=== PATIENT | female | born 1985 | race Caucasian/White ===

== ENCOUNTER 2020-06-21 20:52 | Inpatient (IN) | payer OTHER, SELFPAY ==
[2020-06-21] VITALS (8 sets, daily range): BP systolic 109–146; BP diastolic 70–119; PULSE 71–92; RESP 12; TEMP 36.7–37.1; O2SAT 98–99; BMI 35.9
[2020-06-21] MEDS: LACTATED RINGERS 1,000 ML 125 ML IV CONT (21:41)
--- NOTE | 2020-06-21 22:37 | WPDANESEPP ---
Anes - Eval Pre Procedure Procedure: Operation Date: 06/21/20 22:45 Proposed Procedures p Section(Not Applicable) - Payam Gonzales MD Date/Time: 06/21/20 22:37 Pre Op Diagnosis: Contractions, ruptered membranes, previous C/S Patient Data Age: 34 Gender: F Height: Weight: Last Vital Signs Pulse 84 06/21/20 21:39 BP 109/83 06/21/20 21:39 Allergies Allergy/AdvReac Type Severity Reaction Status Date / Time No Known Allergies Allergy Verified 06/01/20 16:09 Home Medications Medication Instructions Recorded Confirmed Type ergocalciferol (vitamin D2) 1,250 mcg PO WEEKLY 06/01/20 06/01/20 History [Vitamin D2] prenat.vits,tho,ojz-jtum-qxbnb 1 tablet PO DAILY 06/01/20 06/01/20 History [ #2] Patient hx anesthesia problems: none Family hx anesthesia problems: none PMFSH Family History Family History Father ALS (amyotrophic lateral sclerosis) Social History Social History Smoking status: Never smoker Alcohol intake: never Substance use: never Spiritual care concerns: No Exam Day of Procedure 06/21/20 22:37 Patient weight: overweight Heart: regular rate and rhythm Lungs: clear to auscultation and normal air movement Airway: Mallampati scale class II Neurological: alert and oriented
--- NOTE | 2020-06-21 22:39 | WPDANESEFPP ---
Anes - Eval Final PreProcedure Day of Procedure 06/21/20 22:39 Patient weight: overweight Heart: regular rate and rhythm Lungs: clear to auscultation and normal air movement Airway: Mallampati scale class II Neurological: alert and oriented ASA classification: II Emergent: yes Anesthetic plan: proceed Anesthesia type and monitoring: regional spinal and standard monitoring Informed Consent: The patient's anesthetic plan and its attendant risks and benefits were discussed with the patient/family/POA. Questions were solicited and answers provided to the satisfaction of the patient/family/POA.
[2020-06-21 22:41] LABS: Basophils Percent Auto 0.2 % (0.2-1.2); Eosinophils Absolute Auto 0.1 K/mm3 (0-0.3); Eosinophils Percent Auto 0.8 % (0-4.4); Hematocrit 30.7 % (37.0-47.0); Hemoglobin 10.2 g/dL (12.0-15.0); Immature Granulocyte Percent A 0.9 % (0-0.5); Lymphocytes Absolute Auto 2.28 K/mm3 (0.9-3.2); Lymphocytes Percent Auto 21.2 % (18.3-44.2); Mean Corpuscular HGB Conc 33.2 g/dl (32-36); Mean Corpuscular Hemoglobin 29.5 pg (26-34); Mean Corpuscular Volume 88.7 fl (80-100); Mean Platelet Volume 10.6 fl (7.4-10.4); Monocytes Absolute Auto 0.9 K/mm3 (0.1-0.6); Monocytes Percent Auto 8.7 % (2.6-8.5); Neutrophils Absolute Auto 7.3 K/mm3 (1.3-6.7); Neutrophils Percent Auto 68.2 % (45.5-73.1); Platelet Count Result 201 k/mm3 (150-375); Red Blood Count 3.46 M/mm3 (4.2-5.4); White Blood Count 10.7 K/mm3 (4.5-10.0)
--- NOTE | 2020-06-21 22:42 | PM.IMHP ---
H&P: HPI History of Present Illness Date/Time: 06/21/20 22:42 [age] 2 [age] whose last menstrual period was 09/20/2019, EDC is 06/26/2020 presents at 39 and half weeks gestation with spontaneous rupture membranes. She had a previous section and desires repeat at 39. She is however passed 39 and membranes were ruptured. Chief Complaint: labor in patient with previous section Review of Systems Review of Systems: All systems reviewed & are unremarkable except as noted in HPI and below PMFSH Family History Family History Father ALS (amyotrophic lateral sclerosis) Social History Social History Smoking status: Never smoker Alcohol intake: never Substance use: never Gender identity (if verbalized by the patient): Female Sexual Orientation (if Verbalized by the Patient): Straight or Heterosexual Spiritual care concerns: No Meds Home Medications and Allergies Home Medications Medication Instructions Recorded Confirmed Type ergocalciferol (vitamin D2) 1,250 mcg PO WEEKLY 06/01/20 06/01/20 History [Vitamin D2] prenat.vits,tho,ofg-xdzs-gqqii 1 tablet PO DAILY 06/01/20 06/01/20 History [ #2] Allergies Allergy/AdvReac Type Severity Reaction Status Date / Time No Known Allergies Allergy Verified 06/01/20 16:09 Vital Signs Vital Signs - 24 hr 06/21/20 21:39 Pulse Rate 84 Blood Pressure 109/83 Exam Const: General: no acute distress Eyes: General: appearance normal, both eyes and all related structures Neck: Neck: supple and no JVD Thyroid: thyroid normal Resp: Effort & Inspection: normal respiratory effort Auscultation: clear to auscultation bilaterally Cardio: Rate: regular rate Rhythm: regular rhythm GI: Inspection: non-distended GI Palp: Yes Soft to palpation, No Tenderness to palpation present (GI) and No Guarding due to palpation present (GI) Auscultation: normal bowel sounds : External Female Exam: normal external appearance Speculum Exam - Vagina: normal appearance of the vagina Speculum Exam - Cervix: normal appearance of the cervix ( 2-3 cm by RN exam. Clear fluid is seen. FHTs reassuring) Skin: General skin exam: no rashes or lesions noted Extrem: General: normal to inspection and no edema Psych: Mental Status: mental status grossly normal Affect: normal affect H&P: Results Labs Labs: Short CBC 06/21/20 Range/Units 22:36 WBC 10.7 H (4.5-10.0) K/mm3 Hgb 10.2 L (12.0-15.0) g/dL Hct 30.7 L (37.0-47.0) % Plt Count 201 (150-375) k/mm3 Assessment and Plan Additional Plan impression: Term with previous section now spontaneous rupture membranes Plan repeat low-transverse section
[2020-06-21] MEDS: LACTATED RINGERS 1,000 ML 999 ML IV CONT (22:45)
--- NOTE | 2020-06-21 22:46 | WPDHPUPDATE1 ---
History and Physical Update Update Date/Time: 06/21/20 22:46 History and Physical has been reviewed, including an updated exam of the patient. There are NO changes in the patient's condition. Risks, benefits, and alternatives have been discussed and questions answered. Patient agrees to proceed with procedure.
[2020-06-21] MEDS: ceFAZolin 2 GM/D5W 50 ML 2 GM/50 ML BAG IVPB (23:08)
--- NOTE | 2020-06-21 23:43 | P.OP_ITS ---
Procedure Note - Detailed Date of procedure: 06/21/20 Pre-op diagnosis: Contractions, ruptered membranes, previous C/S Surgeon: Payam Gonzales MD Postop diagnosis: Term spontaneous rupture membranes / previous section Procedure: Repeat low-transverse section EBL: 345cc Anesthesia: Spinal Findings: Female Apgars 9 and 9 at 1 and 5 minutes respectively Complications:none mmediate complications notedconsent she was rolled back placed in the supine position. Under excellent spinal anesthetic the previous incision was progressive layers to the fascia. Fascia incised midline in the upward outward fashion bilaterally. Underlying muscles cervical dissected the parietal peritoneum elevated Vanessa clamps. Peritoneum was entered by sharp dissection carried superiorly and inferiorly down the bladder. Bladder flap was formed and a bladder blade returned. A low-transverse incision made the head delivered in the AIDA position. Anterior posterior shoulder delivered spontaneously. Cord clamped x2 and cut in infant passed off the table with an excellent cry. P lacenta delivered intact manually. Uterus delivered and wrapped in a moist towel. After assuring no membranes remained in the uterus, the uterus was closed with continuous running 0 Vicryl from lateral edge to lateral edge followed by a 2nd imbricating running locking 0 Vicryl from lateral edge to lateral edge. Hemostasis was assured and blood loss was estimated. Ovaries and tubes appeared within normal limits with a small simple ovarian cyst on the right. Uterus returned to the abdomen the incision on the uterus inspected 1 last time noted be hemostatic. The laps removed and accounted for in the fascia closed with continuous running 0 Vicryl from lateral edge to midline bilaterally. Skin closed with 4 O Monocryl and glue. EBL was 345cc. All sponge, needle, instrument counts were correct. There were no i
[2020-06-22] VITALS (42 sets, daily range): BP systolic 88–119; BP diastolic 14–79; PULSE 57–181; RESP 14–20; TEMP 36.2–36.9; O2SAT 95–100
--- NOTE | 2020-06-22 00:45 | LDADM ---
This patient, Mary Shin, was admitted to Labor/Delivery/Recovery 120 on 06/21/20 at 22:16. Plans for labor, pain management and were discussed with patient. Patient/family oriented to hospital policies and general routines including ID bracelet, bed and alarms, visiting hours, pain management, procedures, bathroom and other care routines, personal items, smoking policy, room service/diet and guest tray routines, infant security routines, and visiting hours. Patient/Family are encouraged to report perceived risks to care and to ask questions if they do not understand what they are told or what they should do. See OBIX for further documentation.
[2020-06-22] MEDS: OXYTOCIN 30 UNITS/NS 500 ML 30 UNITS/500 ML BAG 125 UNITS IV CONT (02:00)
[2020-06-22] MEDS: diphenhydrAMINE HCl INJ 50 MG/ML VIAL (02:24)
--- NOTE | 2020-06-22 05:30 | OBPPTRN ---
Patient transferred to post room #286 via bed with baby in bassinet. Support person present. Oriented to unit, room, information board, rooming in, admission packet and security measures. Patient verbalizes understanding.
[2020-06-22 06:01] LABS: Basophils Percent Auto 0.2 % (0.2-1.2); Eosinophils Percent Auto 0.1 % (0-4.4); Hemoglobin 9.7 g/dL (12.0-15.0); Immature Granulocyte Absolute 0.14 K/mm3 (0.00-0.031); Immature Granulocyte Percent A 0.8 % (0-0.5); Lymphocytes Percent Auto 7.2 % (18.3-44.2); Mean Corpuscular HGB Conc 32.3 g/dl (32-36); Mean Corpuscular Hemoglobin 29.5 pg (26-34); Mean Corpuscular Volume 91.2 fl (80-100); Mean Platelet Volume 11.4 fl (7.4-10.4); Monocytes Absolute Auto 0.8 K/mm3 (0.1-0.6); Monocytes Percent Auto 4.7 % (2.6-8.5); Neutrophils Absolute Auto 14.5 K/mm3 (1.3-6.7); Platelet Count Result 195 k/mm3 (150-375); Red Blood Count 3.29 M/mm3 (4.2-5.4); White Blood Count 16.7 K/mm3 (4.5-10.0)
[2020-06-22] MEDS: DEXTROSE 5%/0.45% SOD CHL 1,000 ML 125 ML IV CONT (06:15)
--- NOTE | 2020-06-22 07:15 | PC.NURSE ---
PT introductions made and plan of care discussed per post op c section, pain management, breast feeding, daily care activities. PT verbalized understanding of such care. PT receives education through out the shift using one to one discussion and mom baby care guide. PT and spouse both recipients of such instructions and no barriers to learning identified.
[2020-06-22] MEDS: POLYSACCHARIDE IRON COMPLEX 150 MG CAPSULE PO ×2 (08:35→17:10)
[2020-06-22] MEDS: DOCUSATE SODIUM 100 MG CAPSULE PO ×2 (08:35→17:10)
[2020-06-22] MEDS: SIMETHICONE 80 MG TAB.CHEW PO ×2 (08:35→17:10)
[2020-06-22] MEDS: ACETAMINOPHEN 325 MG TABLET 650 MG PO ×2 (08:36→17:08)
[2020-06-22] MEDS: MULTIVIT/MIN/PREN/FOL AC/IRON TABLET 1 TAB PO (08:36)
[2020-06-22] MEDS: IBUPROFEN 600 MG TABLET PO ×2 (08:37→17:09)
--- NOTE | 2020-06-22 09:18 | WPDANLDPN2 ---
Anes-Prog Note L&D Date/Time: 06/22/20 09:18 Comfortable throughout: labor and delivery Neuraxial method: epidural Epidural/Spinal procedure site: clean & non-tender Neuro status: Neuro function grossly intact. Cardiovascular status: normal Respiratory status: normal Airway patency: baseline Mental status: baseline Post-Op hydration status: normal Vital Signs: Last Vital Signs Temp 36.8 C 06/22/20 04:15 Pulse 90 06/22/20 04:15 Resp 18 06/22/20 04:15 BP 97/64 L 06/22/20 04:15 Pulse Ox 98 06/22/20 04:15 Pain score (VAS): 0 I/O: Intake & Output 06/21/20 06/22/20 06/22/20 23:59 07:59 15:59 Intake Total 2050 Output Total 545 275 Balance 1505 -275 Post-procedural complaints: none Patient feedback: Patient satisfied with anesthetic care.
--- NOTE | 2020-06-22 09:20 | WPDANLDNPN2 ---
Anes-Prog Note L&D-Neuraxial Date/Time: 06/22/20 09:20 Opiod-related complaints: pruritis moderate, treatment effective Patient feedback: Patient satisfied with post-operative pain management.
[2020-06-22 10:51] LABS: Rapid Plasma Reagin Non-Reactive (NonReactive)
--- NOTE | 2020-06-22 11:40 | PC.NURSE ---
Consult with pt., mother reports is eagerly nursing without difficulties or discomfort. Mother reports first child for a few months and then switched to bottle feeding due to low milk supply and choice. Mother states easily awakens to feed, will latch eagerly within a few attempts and nurses without issue. Reviewed feeding cues, frequencies, duration of feedings, feeding elimination flow sheet, and signs of adequate intake. Demonstrated stimulation techniques to wake for feeding. Requested mother call out next feeding for observation. Instructed mother to call out for RN assistance if she is unable to latch for feeding or she has discomfort with nursing. Instructed feeding should be initiated three hours from start of last feeding or if feeding cues are noted before. Mother voiced understanding of information shared.
--- NOTE | 2020-06-22 16:02 | PM.OBPNVD ---
OB - PN: Subj Subjective Date/time seen: 06/22/20 16:02 Interval history: Patient doing well today. she is ambulating out of bed. She is tolerating PO. She reports adequate pain control. Her bleeding is normal and she reports normal lochia. She denies fever, chills, N/V. She has not yet passed flatus. Patient comments: no complaints and pain well controlled; no flatus present OB - PN: Obj Data Labs CBC & Chem 7: 06/22/20 04:27 Labs: Laboratory Results - last 24 hr 06/21/20 06/21/20 06/21/20 22:36 22:36 22:36 WBC 10.7 H RBC 3.46 L Hgb 10.2 L Hct 30.7 L MCV 88.7 MCH 29.5 MCHC 33.2 RDW 13.0 Plt Count 201 MPV 10.6 H Immature Gran % (Auto) 0.9 H Neut % (Auto) 68.2 Lymph % (Auto) 21.2 Bladen % (Auto) 8.7 H Eos % (Auto) 0.8 Baso % (Auto) 0.2 Lymph # (Auto) 2.28 Bladen # (Auto) 0.9 H Eos # (Auto) 0.1 Baso # (Auto) 0.0 Abs Immat Gran (auto) 0.10 H Absolute Neuts (auto) 7.3 H Absolute Nucleated RBC 0.0 Nucleated RBC % 0.0 RPR Non-reactive T.pallidum Ab (FTA-ABS) Blood Type B Positive Antibody Screen Negative 06/21/20 06/22/20 22:36 04:27 WBC 16.7 H RBC 3.29 L Hgb 9.7 L Hct 30.0 L MCV 91.2 MCH 29.5 MCHC 32.3 RDW 13.0 Plt Count 195 MPV 11.4 H Immature Gran % (Auto) 0.8 H Neut % (Auto) 87.0 H Lymph % (Auto) 7.2 L Bladen % (Auto) 4.7 Eos % (Auto) 0.1 Baso % (Auto) 0.2 Lymph # (Auto) 1.20 Bladen # (Auto) 0.8 H Eos # (Auto) 0.0 Baso # (Auto) 0.0 Abs Immat Gran (auto) 0.14 H Absolute Neuts (auto) 14.5 H Absolute Nucleated RBC 0.0 Nucleated RBC % 0.0 RPR T.pallidum Ab (FTA-ABS) Cancelled Blood Type Antibody Screen OB - PN A/P Plan day: 1 Plan: routine care Comments: patient doing well this AM s/p santoro catheter advance diet as tolerated H/H 9.09/23, will start iron supplementation continue routine PP care Time Spent With Patient Time: Total time spent is greater than 50% in coordination of care (as documented) at patient's floor/unit and/or counseling patient: Time with patient: less than 15 minutes Review of Systems Constitutional: Constitutional: Reports no additional constitutional complaints Cardiovascular: Cardiovascular: Reports no additional cardiovascular complaints Respiratory: Respiratory: Reports no additional respiratory complaints Gastrointestinal: Gastrointestinal: Reports no additional gastrointestinal complaints Genitourinary: Genitourinary: Reports no additional female genitourinary complaints Exam Const: General: comfortable and no acute distress Resp: Effort & Inspection: normal respiratory effort Auscultation: clear to auscultation bilaterally Cardio: Rate: regular rate GI: GI Palp: Yes Soft to palpation and Yes Tenderness to palpation present (GI) (appropriately tender around incision ) Auscultation: normal bowel sounds Other: fundus firm and below umbilicus Incision C/D/I Urinary Catheter: Urinary Catheter: urine clear Psych: Appearance: grossly normal Mental Status: mental status grossly normal Affect: normal affect
[2020-06-23 00:25] VITALS: BP 96/59; PULSE 77; RESP 15; TEMP 36.7; O2SAT 100
[2020-06-23] MEDS: IBUPROFEN 600 MG TABLET PO ×2 (00:29→08:03)
[2020-06-23] MEDS: ACETAMINOPHEN 325 MG TABLET 650 MG PO (00:29)
[2020-06-23] MEDS: SIMETHICONE 80 MG TAB.CHEW PO ×2 (00:30→08:01)
--- NOTE | 2020-06-23 07:10 | PM.OBPNVD ---
OB - PN: Subj Subjective Date/time seen: 06/23/20 07:10 Interval history: Patient doing well today. she is ambulating out of bed. She is tolerating PO. She reports adequate pain control. Her bleeding is normal and she reports normal lochia. She denies fever, chills, N/V. She has not yet passed flatus. Patient comments: no complaints, pain well controlled, tolerating diet and flatus present OB - PN: Obj Data Labs CBC & Chem 7: 06/22/20 04:27 Labs: Laboratory Results - last 24 hr 06/21/20 06/21/20 22:36 22:36 RPR Non-reactive T.pallidum Ab (FTA-ABS) Cancelled OB - PN A/P Plan day: 1 Plan: routine care Comments: patient doing well H/H stable afebrile, VSS incision C/D/I santoro removed, voiding spontaneously continue routine post op care Time Spent With Patient Time: Total time spent is greater than 50% in coordination of care (as documented) at patient's floor/unit and/or counseling patient: Time with patient: less than 15 minutes Review of Systems Constitutional: Constitutional: Reports no additional constitutional complaints Cardiovascular: Cardiovascular: Reports no additional cardiovascular complaints Respiratory: Respiratory: Reports no additional respiratory complaints Gastrointestinal: Gastrointestinal: Reports no additional gastrointestinal complaints Genitourinary: Genitourinary: Reports no additional female genitourinary complaints Exam Const: General: comfortable and no acute distress Resp: Effort & Inspection: normal respiratory effort Auscultation: clear to auscultation bilaterally Cardio: Rate: regular rate GI: GI Palp: Yes Soft to palpation, Yes Tenderness to palpation present (GI) (around incision ) and No Guarding due to palpation present (GI) Auscultation: normal bowel sounds Other: incision C/D/I, covered with Dermabond Psych: Appearance: grossly normal Mental Status: mental status grossly normal Affect: normal affect
--- NOTE | 2020-06-23 07:11 | P.DS_ITS ---
DS: Admitting Diagnosis Admitting Diagnosis Admitting Diagnosis: Labor history of prior section OB - DS: Summary OB Procedures : None OB Procedures Intrapartum: OB Procedures: : None Peripartum Data Delivery Method: Section Procedures: Procedures Operation Date: 06/21/20 22:45 Actual Procedure Side Surgeon p Section Not Applicable Payam Gonzales MD complications: none Status at Discharge Functional status at discharge: independent ambulation Overall status at discharge: patient is progressing back to baseline Time Spent with Patient Time attestation: Total time spent providing and/or coordinating discharge services: Time spent: Less than 30 minutes Exam Const: General: comfortable and no acute distress Resp: Effort & Inspection: normal respiratory effort Auscultation: clear to auscultation bilaterally Cardio: Rate: regular rate GI: Inspection: non-distended GI Palp: Yes Soft to palpation, No Firmness to palpation present (GI), Yes Tenderness to palpation present (GI) (mild tender ness over incision ) and No Guarding due to palpation present (GI) Auscultation: normal bowel sounds Psych: Appearance: grossly normal Mental Status: mental status grossly normal DS: Data Data Completed and Pending Labs on day of discharge: Labs from last 24 hours 06/21/20 06/21/20 22:36 22:36 RPR Non-reactive T.pallidum Ab (FTA-ABS) Cancelled Discharge Plan Discharge Attending physician on discharge: Shimon Flores Consulting providers: Jordan Coleman Discharging Clinician: Shimon Flores Patient Disposition: Home, Self-Care Activity: as tolerated and pelvic rest Diet: regular Discharge Instructions: call or return for temperature >100.4, bleeding >2 pads/hr for 2 hrs, pain not controlled with medications, signs/symptoms of mastitis Patient Instructions: Antibiotic Form, (DC) Stand Alone Forms: General Discharge Information Follow-up/Referrals: Shimon Flores MD [Physician] - 4 Weeks Discharge Medications: New oxycodone-acetaminophen [Percocet] 5-325 mg tablet 1 tablet PO Q6H PRN (Reason: pain) Qty: 28 RF: 0 polysaccharide iron complex 150 mg iron Capsule 150 mg PO BIDWM Qty: 60 RF: 0 acetaminophen [Mapap (acetaminophen)] 325 mg Tablet 650 mg PO Q6H PRN (Reason: Mild Pain (1-3)) Qty: 30 RF: 0 ibuprofen 600 mg Tablet 600 mg PO Q6H PRN (Reason: Cramping) Qty: 30 RF: 0 Continued ergocalciferol (vitamin D2) [Vitamin D2] 1,250 mcg (50,000 unit) Capsule 1,250 mcg PO WEEKLY RF: 0 #2 Tablet 1 tablet PO DAILY RF: 0 Date of admission: 06/21/20 22:16 Primary Care Provider: PHYSICIAN,FIREPOT OPERATOR AND TENDER Admitting Provider: Shimon Flores Attending physician on admission: Shimon Flores Condition: Stable
[2020-06-23 08:00] VITALS: BP 110/66; PULSE 81; RESP 18; TEMP 36.6; O2SAT 100
[2020-06-23] MEDS: DOCUSATE SODIUM 100 MG CAPSULE PO (08:01)
[2020-06-23] MEDS: HYDROcodone/acetaminophen (*CRX) 5-325 MG TABLET 1 TAB PO (08:02)
[2020-06-23] MEDS: POLYSACCHARIDE IRON COMPLEX 150 MG CAPSULE PO (08:02)
[2020-06-23] MEDS: MULTIVIT/MIN/PREN/FOL AC/IRON TABLET 1 TAB PO (08:02)
--- NOTE | 2020-06-23 08:30 | PC.NURSE ---
Patient was given the opportunity to view the discharge video Mother & Baby Care, The First Two Weeks and to ask questions. Patient declined viewing the video and has been given the mother/baby guide for home reference.
--- NOTE | 2020-06-23 10:10 | PC.NURSE ---
Observed mother is able to independently latch infant with appropriate positioning/alignment. She denies any nipple discomfort, is feeding as required and waking infant to feed if needed. is feeding as required of at least 8 effective feedings in the past 24 hours, and is currently meeting outcomes for weight, output, jaundice and feeding frequencies. Mother is concerned with 's tongue and due to first child had a tongue tie and difficulties with latching. 's tongue does not appear to be tied and is able to thrust tongue beyond gum ridge. Advised to inform her ICP for assessment on first visit and watching for tenderness with feeding and infant weight gain. Mother states she feels confident to continue effective at home. Reviewed transition to breast milk, signs of adequate intake, and engorgement/relief. Instructed to call ICP if intake/output less than required. Reviewed regular medications mother is taking. Information provided per [facility]. Reviewed community resources on the [facility] website and in the Mom/Baby guide. Information on outpatient services provided. Mother has no further questions at this time.
--- NOTE | 2020-06-23 10:23 | PC.NURSE ---
Discharge instructions given to mother including follow up visit date and time. Mother verbalized understanding. No questions or concerns voiced. FOB at side. Very pleasant and cooperative. Happy about going home.
--- NOTE | 2020-06-23 16:13 | PC.NURSE ---
Pt. states that she has farm machinery mechanic appt. tomorrow 06/24/20 at 10:[address] Bowman. Will not be returning for follow up visit.
== END 2020-06-23 16:10 | disposition home or self-care (01) | DRG 788 ==
LOC: ANHLDR 22:46 → ANHOB2 06-22 04:27
PROVIDERS: Admitting Provider Obstetrics & Gynecology; Visit Provider Student in an Organized Health Care Education/Training Program
PROC: 10D00Z1 Extraction of Products of Conception, Low, Open Approach (ICD-10-PCS; CPT 59514; principal; 2020-06-21 22:45)
DX: O34.211 Maternal care for low transverse scar from previous cesarean delivery (principal); Z37.0 Single live birth; Z3A.39 39 weeks gestation of pregnancy
CPT/HCPCS: 36415; 85025; 86592; 86850; 86900; 86901; A9270; J0131; J0690; J1100; J1200; J1885; J2175; J2274; J2370; J2405; J2590; J7120

== ENCOUNTER 2022-04-23 08:11 | Emergency (ER) | payer BC, SELFPAY ==
--- NOTE | 2022-04-23 08:32 | ED.URI ---
HPI - URI/Sore Throat General Chief Complaint: Upper Respiratory Infection Stated Complaint: sorethroat Time Seen by Provider: 04/23/22 08:32 Source: patient Mode of arrival: ambulatory Limitations: no limitations History of Present Illness HPI Narrative: Mary is a 36-year-old female patient presenting to the clinic today with complaints of sore throat, cough, and bilateral ear pain times 4 days. She reports no known fever or chills. She denies any shortness of breath or chest pain. No known exposure to anybody with COVID, flu, or strep. MD elicited complaint: cough, sore throat, nasal congestion and other (Bilateral ear pain) Related Data Allergies Allergy/AdvReac Type Severity Reaction Status Date / Time No Known Allergies Allergy Verified 04/23/22 08:42 Review of Systems Review of Systems: Pertinent positives per HPI. Patient denies any fever, chills, rash, headache, visual changes, dizziness, cough, shortness of breath, chest pain, palpitations, nausea, vomiting, diarrhea, constipation, abdominal pain, or any urinary issues. [facility] Family History Family History Father ALS (amyotrophic lateral sclerosis) Social History Social History Smoking status: Never smoker Alcohol intake: never Substance use: never Gender identity (if verbalized by the patient): Female Sexual Orientation (if Verbalized by the Patient): Straight or Heterosexual Spiritual care concerns: No Comments At the time of my signature, I reviewed and agree with the nursing past medical, surgical, social, and family history. There is no relevant family history pertinent to the patient complaint. Exam Narrative: General: Well-developed, well nourished, in no apparent distress Head: Normocephalic, atraumatic Eyes: Pupils equally round and reactive to light bilaterally, EOM intact, sclera and conjunctive clear, no discharge, lids normal Ears: TMs intact and dull, ear canals clear, no drainage, grossly hearing normal. Nose: Nares patent, no discharge, no inflammation, no sinus tenderness. Mouth: Oral pharynx without lesions or masses, good dentition, MMM. Neck: Supple, trachea midline, no enlargement of anterior or posterior cervical nodes, no thyroid masses or goiter palpable. Cardio: Regular rate and rhythm, s1 and s2 normal, no murmur appreciated. Resp: Clear to auscultation bilaterally, no rhonchi, rales, wheezing or rubs Course Course Emergency Course: Portions of this record may have been created with voice recognition software. Level of Care: Express Care Visit Vital Signs Vital signs: Vital Signs Temperature 36.7 C 04/23/22 08:41 Pulse Rate 93 04/23/22 08:41 Respiratory Rate 18 04/23/22 08:41 Blood Pressure 123/88 04/23/22 08:41 Pulse Oximetry 99 04/23/22 08:41 Oxygen Delivery Room Air 04/23/22 08:41 Temperature 36.7 C 04/23/22 08:41 Pulse Rate 93 04/23/22 08:41 Respiratory Rate 18 04/23/22 08:41 Blood Pressure 123/88 04/23/22 08:41 Pulse Oximetry 99 04/23/22 08:41 Oxygen Delivery Room Air 04/23/22 08:41 Vital signs reviewed MDM - URI/Sore Throat MDM Narrative Medical decision making narrative: At the time of visit patient is resting comfortably on the exam table. Strep screen and COVID testing were obtained in the clinic today. Strep screen was positive. COVID testing was negative. Prescription for amoxicillin was sent to the pharmacy and supportive measures were discussed with the patient she voiced understanding of discharge instructions and agrees to treatment plan Differential Diagnosis Differential diagnosis: Likely upper respiratory infection, otitis media, viral infection, influenza and pharyngitis Lab Data Labs: Strep Screen Positive Group A Strep *(Reference Range: Negative)*
[2022-04-23 08:41] VITALS: BP 123/88; PULSE 93; RESP 18; TEMP 36.7; O2SAT 99
== END 2022-04-23 09:14 | disposition home or self-care (01) ==
PROVIDERS: Emergency Provider Nurse Practitioner Family; PCP Family Medicine
DX: J02.0 Streptococcal pharyngitis (principal); Z20.822 Contact with and (suspected) exposure to COVID-19
CPT/HCPCS: 87426; 87880; 99213; C9803; G0463

== ENCOUNTER 2022-11-06 09:29 | Outpatient (CLI) | payer BC, SELFPAY ==
--- NOTE | 2022-11-06 11:30 | NEURO_ITS ---
PATIENT NUMBER: [id number] IMPRESSION: # Complains of numbness of hands. # Left Carpal tunnel syndrome. # Right ulnar neuropathy across the elbow.. # Normal needle exam Nerve Conduction Studies Anti Sensory Summary Table Stim Site NR Peak (ms) P-T Amp (?V) Site1 Site2 Delta-P (ms) Dist (cm) Lisandro (m/s) Left Median Anti Sensory (2-3nd Digit) Wrist 3.7 62.2 Wrist 2-3nd Digit 3.7 14.0 38 Wrist 4.0 13.2 Wrist 2-3nd Digit 3.7 14.0 38 Right Median Anti Sensory (2-3nd Digit) Wrist 2.3 10.9 Wrist 2-3nd Digit 2.3 14.0 61 Wrist 2.3 2.2 Wrist 2-3nd Digit 2.3 14.0 61 Left Radial Anti Sensory (Base 1st Digit) Wrist 1.4 56.1 Wrist Base 1st Digit 1.4 0.0 Right Radial Anti Sensory (Base 1st Digit) Wrist 1.7 23.7 Wrist Base 1st Digit 1.7 0.0 Left Ulnar Anti Sensory (5th Digit) Wrist 2.0 137.4 Wrist 5th Digit 2.0 14.0 70 Right Ulnar Anti Sensory (5th Digit) Wrist 2.2 100.9 Wrist 5th Digit 2.2 14.0 64 Motor Summary Table Stim Site NR Onset (ms) O-P Amp (mV) Site1 Site2 Delta-0 (ms) Dist (cm) Lisandro (m/s) Left Median Motor (Abd Poll Brev) Wrist 5.8 3.1 Elbow Wrist 4.5 27.0 60 Elbow 10.3 2.8 Right Median Motor (Abd Poll Brev) Wrist 3.1 7.3 Elbow Wrist 8.2 26.0 32 Elbow 11.3 1.6 Left Ulnar Motor (Abd Dig Minimi) Wrist 2.6 7.0 A Elbow Wrist 3.9 27.0 69 A Elbow 6.5 7.1 Right Ulnar Motor (Abd Dig Minimi) Wrist 2.0 5.9 A Elbow Wrist 5.1 28.0 55 A Elbow 7.1 5.1 F Wave Studies NR F-Lat (ms) L-R F-Lat (ms) Left Median (Mrkrs) (Abd Poll Brev) 28.20 2.50 Right Median (Mrkrs) (Abd Poll Brev) 25.70 2.50 Left Ulnar (Mrkrs) (Abd Dig Min) 24.30 1.95 Right Ulnar (Mrkrs) (Abd Dig Min) 26.25 1.95 EMG Side Muscle Nerve Root Ins Act Fibs Amp Dur Recrt Comment Right 1stDorInt Ulnar C8-T1 Nml Nml Nml Nml Nml Right Ext Indicis Radial (Post Int) C7-8 Nml Nml Nml Nml Nml Right Ext Digitorum Radial (Post Int) C7-8 Nml Nml Nml Nml Nml Right BrachioRad Radial C5-6 Nml Nml Nml Nml Nml Right PronatorTeres Median C6-7 Nml Nml Nml Nml Nml Right Abd Poll Brev Median C8-T1 Nml Nml Nml Nml Nml Left 1stDorInt Ulnar C8-T1 Nml Nml Nml Nml Nml Left Ext Indicis Radial (Post Int) C7-8 Nml Nml Nml Nml Nml Left Ext Digitorum Radial (Post Int) C7-8 Nml Nml Nml Nml Nml Left BrachioRad Radial C5-6 Nml Nml Nml Nml Nml Left PronatorTeres Median C6-7 Nml Nml Nml Nml Nml Left Abd Poll Brev Median C8-T1 Nml Nml Nml Nml Nml MTDD
== END 2022-11-06 09:30 | disposition home or self-care (01) ==
PROVIDERS: PCP Nurse Practitioner Family; Visit Provider Nurse Practitioner Family
DX: G56.02 Carpal tunnel syndrome, left upper limb (principal); G56.22 Lesion of ulnar nerve, left upper limb
CPT/HCPCS: 95911

== ENCOUNTER 2023-01-03 01:45 | Day surgery (SDC) | payer BC, SELFPAY ==
[2022-12-31 12:19] VITALS: BMI 34.5
--- NOTE | 2022-12-31 12:23 | PC.NURSE ---
Report to the Outpatient Waiting Room, entrance under the green pavilion located off [facility], at time 1130 on date 01/03/23. Planned Procedure Time: 1330. Time changes happen often and if your time is changed the preop area will call you the afternoon before. - You and your visitor will be asked to self-screen and do not enter if you have any COVID symptoms. - A mask is optional within the hospital at this time. No food OR DRINK from midnight until time of surgery Take the following medications with a SIP of water the morning of surgery: SERTRALINE DO NOT STOP ANY OF YOUR OTHER PRESCRIPTION MEDICATIONS PRIOR TO SURGERY ?EXCEPT THE FOLLOWING Medications to discontinue per physician: N/A Date to take last dose: N/A Please no make-up, nail yakut, hairspray, perfume, deodorant, or body powder the day of surgery. No jewelry (including any body piercings) or valuables the day of surgery, leave them at home. Please take a shower or bath the night before, or the morning of, surgery with an antibacterial soap. Wear comfortable, loose fitting clothing. - Jewelry must be removed prior to entering the operating room. Rings and piercings that are not removed may be cut off. - The hospital will not accept responsibility for valuables. - Please leave all valuables, including medications, at home the day of surgery. If you are going home after surgery, a licensed industrial truck driver must drive you home. - NO public transportation without another adult if you receive anesthesia. - We recommend that an adult stay with you for 24 hours following discharge. - We also recommend that you do not drive, make important decision, drink alcoholic beverages, or take any drugs that were not prescribed by your health care provider for at least 24 hours after your discharge time. Follow any additional instructions given to you from your surgeon. If you or anyone in your household have experienced Covid symptoms in the past week, please notify your surgeon or the nurse liaison at the phone number below for possible testing. Telephone instructions given to PT - [facility] and asked if any additional questions and then verbalized understanding. Patient advised to call surgeon office or pre surgery nurse liaison [phone] if any additional questions.
--- NOTE | 2023-01-03 08:26 | PM.HPGS ---
History of Present Illness History of Present Illness Chief complaint: bilat carpal tunnel syndrome,ulnar neuropathy Narrative: Mary Shin is a 37 year old female here for surgery. Patient seen and examined in pre-operative holding area. No interval change in medical history or symptoms. Continues to desire to proceed with right ectr poss open and right cubital tunnel release. Reviewed diagnosis and treatment options. Reviewed procedure, post-op expectations and risks including but not limited to bleeding, infection, injury to tendon/nerve/vessel, decreased hand function, stiffness, RSD, no change or worsening of symptoms. I discussed the possible use of assistants during procedure and level of care. Patient stated understanding and signed the consent form wishing to proceed. ROS: unchanged from previous exam. normal except as above Physical Exam: Heart: RRR Pulm: CTAB Extremities : unchanged from prior PMFSH Past Medical History Medical History (Updated 11/20/22 @ 09:04 by Renita Mitchell MD) Anxiety and depression Encounter to establish care Numbness and tingling in both hands Weakness of both hands Family History Family History Father ALS (amyotrophic lateral sclerosis) Social History Social History (Updated 11/20/22 @ 08:37 by Kandi Clarke MA) Smoking status: Never smoker Alcohol intake: never Substance use: never Substance use type: does not use Lack of Transportation: No Lack of Food: Never True Current Housing: I Have Housing Concerned About Future Housing: No Difficulty Paying Gas/Electric Bills: No Difficulty Paying for Meds: No Currently Unemployed: No Education: Master's Degree or Higher Difficulty w/ Childcare or Family Care: No Living arrangements: with family Gender identity (if verbalized by the patient): Female Sexual Orientation (if Verbalized by the Patient): Straight or Heterosexual Spiritual care concerns: No Meds Home Medications and Allergies Home Medications Medication Instructions Recorded Confirmed Type medroxyprogesterone 150 mg/mL 150 mg IM [id number] 09/21/22 12/31/22 History intramuscular syringe (Depo-Provera) sertraline 100 mg tablet (Zoloft) 100 mg PO DAILY 09/21/22 12/31/22 History Allergies Allergy/AdvReac Type Severity Reaction Status Date / Time No Known Allergies Allergy Verified 12/31/22 12:19 Assessment and Plan Assessment and plan (1) Ulnar neuropathy at elbow of right upper extremity: Code(s): G56.21 - Lesion of ulnar nerve, right upper limb Status: Acute Assessment and Plan: continue with surgery as planned above and previous note (2) Entrapment of left ulnar nerve at elbow: Code(s): G56.22 - Lesion of ulnar nerve, left upper limb Status: Acute
--- NOTE | 2023-01-03 08:28 | P.OP_ITS ---
Procedure Note - Detailed Date of Procedure 01/03/23 Pre-op Diagnosis right carpal tunnel syndrome and right cubital tunnel syndrome Post-op Diagnosis Same Procedure Performed right ectr and right cubital tunnel release Surgeon Renita Mitchell MD [employer] Clerk Blake Kapoor PA-C Anesthesia MAC Description of Procedure The patient was seen in pre-op area, consented and marked. She was taken back to OR on the stretcher in supine position. Time out performed with anesthesia, surgeon and staff agreeing on patient's name site and surgery to be performed SCDs were placed on the lower extremities and inflated. A tourniquet was placed on right upper extremity and antibiotics given IV After anesthesia administered sedation I injected 10cc 1%lido with epi and 0.5% marcaine plain amongst the operative sites The?right upper extremity?was prepped and draped in sterile fashion the??right upper extremity was? exsanguinated with Esmarch bandage and tourniquet inflated to 250mmHg I made a transverse incision in the right} volar distal wrist crease through skin and dermis with 15 blade scalpel.? Littler scissors spread down to antebrachial fascia. A small incision was made in antebrachial fascia allowing access to Carpal tunnel. I proceeded with sequential dilation staying in line with the ring finger and hugging the hook of the hamate.? I then used the synovial elevator to free any adhesions from the underside of the transverse carpal ligament. Next I was able to insert the arthrex endoscopic carpal tunnel device with direct visualization of the transverse fibers on the monitor and proceeded with complete segmental retrograde release of the ligament in its entirety.? I irr igated with normal saline and closed with 4-0 monocryl for dermis and subcuticular closure. Next I proceeded with making a longitudinal incision over the distal end of the cubital tunnel between two heads of FCU through skin and dermis with a 15 blade scalpel. I spread with littler scissors down to the FCU fascia. I made a small incision in the FCU fascia with the scalpel and spreading with littler scissors I identified the ulnar nerve. I proceeded with complete retrograde release of the cubital tunnel including 6 cm proximal to medial epicondyle for intermuscular septum. The nerve appeared healthy with visible vaso nervorum. I put elbow through its range of motion and there was no nerve subluxation. I irrigated with normal saline and closed with 3-0 vicryl and 4-0 monocryl A dressing of Dermabond, 4x4, mehul, and a volar wrist splint and posterior elbow splint was applied for patient safety, security, and comfort and secured with an stuart bandage after the tourniquet was let down noting the hand was warm and well perfused. The patient was then awaken from anesthesia and transferred to the recovery room in stable condition.? Blake Kapoor PA-C was essential for positioning, retraction, closure and dressing placement. Complications - none EBL- 0cc Disposition - home in stable conditions [facility] [place] Surgery - Charge Forward: Surgery Billing ([id number], [id number] same codes for blake but add modifier )
--- NOTE | 2023-01-03 11:33 | P.PNAN_ITS ---
Anes - Initial Pre Proc Eval Procedure: Operation Date: 01/03/23 15:00 Proposed Procedures p Right Endoscopic Carpal Tunnel Release, Possible Open - Renita iMtchell MD s Right Cubital Tunnel Release - Renita Mitchell MD Date/Time: 01/03/23 11:33 Surgeon: Renita Mitchell MD Pre Op Diagnosis: bilat carpal tunnel syndrome,ulnar neuropathy Patient Data Age: 37 Gender: F Height: 1.6 m Weight: 88.45 kg Allergies Allergy/AdvReac Type Severity Reaction Status Date / Time No Known Allergies Allergy Verified 12/31/22 12:19 Home Medications Medication Instructions Recorded Confirmed Type medroxyprogesterone 150 mg/mL 150 mg IM [id number] 09/21/22 12/31/22 History intramuscular syringe (Depo-Provera) sertraline 100 mg tablet (Zoloft) 100 mg PO DAILY 09/21/22 12/31/22 History Patient hx anesthesia problems: none Family hx anesthesia problems: none Results Review: All pre-operative results and documents have been reviewed as part of the pre-operative evaluation. [facility] Past Medical History Medical History (Updated 11/20/22 @ 09:04 by Renita Mitchell MD) Anxiety and depression Encounter to establish care Numbness and tingling in both hands Weakness of both hands Family History Family History Father ALS (amyotrophic lateral sclerosis) Social History Social History (Updated 11/20/22 @ 08:37 by Kandi Clarke MA) Smoking status: Never smoker Alcohol intake: never Substance use: never Substance use type: does not use Lack of Transportation: No Lack of Food: Never True Current Housing: I Have Housing Concerned About Future Housing: No Difficulty Paying Gas/Electric Bills: No Difficulty Paying for Meds: No Currently Unemployed: No Education: Master's Degree or Higher Difficulty w/ Childcare or Family Care: No Living arrangements: with family Gender identity (if verbalized by the patient): Female Sexual Orientation (if Verbalized by the Patient): Straight or Heterosexual Spiritual care concerns: No Anes - Eval Final PreProcedure Day of Procedure 01/03/23 11:33 Patient weight: obese Heart: regular rate and rhythm Lungs: clear to auscultation Airway: Mallampati scale class II Neurological: alert and oriented Last oral intake: >/= 8 hours ASA classification: II Emergent: no Anesthetic plan: proceed Anesthesia type and monitoring: general GIVS and standard monitoring Results Review: All pre-operative results and documents have been reviewed as part of the pre- operative evaluation. Informed Consent: The patient's anesthetic plan and its attendant risks and benefits were discussed with the patient/family/POA. Questions were solicited and answers provided to the satisfaction of the patient/family/POA.
[2023-01-03 11:34] VITALS: BP 128/84; PULSE 79; RESP 14; TEMP 36.6; O2SAT 99
[2023-01-03] MEDS: LACTATED RINGERS 1,000 ML 30 ML IV CONT (11:40)
[2023-01-03] MEDS: ceFAZolin 2 GM/D5W 50 ML 2 GM/50 ML BAG IVPB (12:07)
[2023-01-03] MEDS: BUPivacaine HCL 0.5% PF 30 ML VIAL INFILTRATE (12:31)
[2023-01-03 12:52] VITALS: BP 126/75; PULSE 87; RESP 12; O2SAT 100
[2023-01-03 13:20] VITALS: BP 106/72; PULSE 74; RESP 12; O2SAT 100
[2023-01-03 13:45] VITALS: BP 104/70; PULSE 71; RESP 12
== END 2023-01-03 13:55 | disposition home or self-care (01) ==
PROVIDERS: PCP Nurse Practitioner Family; Visit Provider Plastic Surgery
PROC: 01N54ZZ Release Median Nerve, Percutaneous Endoscopic Approach (ICD-10-PCS; CPT 29848; principal; 2023-01-03 15:00)
PROC: (CPT 29848; 2023-01-03 15:00)
DX: G56.01 Carpal tunnel syndrome, right upper limb (principal); G56.21 Lesion of ulnar nerve, right upper limb; F41.8 Other specified anxiety disorders; E66.9 Obesity, unspecified; Z68.36 Body mass index [BMI] 36.0-36.9, adult
CPT/HCPCS: 29848; 64718; A9270; J0690; J1100; J2250; J2405; J2704; J3010; J7120

== ENCOUNTER 2023-03-29 01:11 | Day surgery (SDC) | payer BC, SELFPAY ==
[2023-03-19 13:17] VITALS: BMI 36.3
--- NOTE | 2023-03-19 13:20 | PC.NURSE ---
Report to the Outpatient Waiting Room, entrance under the green pavilion located off [facility], at time 0730 on date 03/29/23. Planned Procedure Time: 0930. Time changes happen often and if your time is changed the preop area will call you the afternoon before. - You and your visitor will be asked to self-screen and do not enter if you have any COVID symptoms. - A mask is optional within the hospital at this time. - No food OR DRINK from midnight until time of surgery Take the following medications with a SIP of water the morning of surgery: SERTRALINE DO NOT STOP ANY OF YOUR OTHER PRESCRIPTION MEDICATIONS PRIOR TO SURGERY ?EXCEPT THE FOLLOWING Medications to discontinue per physician: N/A Date to take last dose: N/A Please no make-up, nail tuvaluan, hairspray, perfume, deodorant, or body powder the day of surgery. No jewelry (including any body piercings) or valuables the day of surgery, leave them at home. Please take a shower or bath the night before, or the morning of, surgery with an antibacterial soap. Wear comfortable, loose fitting clothing. - Jewelry must be removed prior to entering the operating room. Rings and piercings that are not removed may be cut off. - The hospital will not accept responsibility for valuables. - Please leave all valuables, including medications, at home the day of surgery. If you are going home after surgery, a licensed automation driver must drive you home. - NO public transportation without another adult if you receive anesthesia. - We recommend that an adult stay with you for 24 hours following discharge. - We also recommend that you do not drive, make important decision, drink alcoholic beverages, or take any drugs that were not prescribed by your health care provider for at least 24 hours after your discharge time. Follow any additional instructions given to you from your surgeon. If you or anyone in your household have experienced Covid symptoms in the past week, please notify your surgeon or the nurse liaison at the phone number below for possible testing. Telephone instructions given to PT - [facility] and asked if any additional questions and then verbalized understanding. Patient advised to call surgeon office or pre surgery nurse liaison [phone] if any additional questions.
--- NOTE | 2023-03-29 06:51 | P.HP_ITS ---
History of Present Illness History of Present Illness Chief complaint: left carpal tunnel syndrome Narrative: Patient seen and examined in pre-operative holding area. No interval change in medical history or symptoms. Patient recalls previous discussion of benefits and alternatives to procedure. Continues to desire to proceed with left endoscopic possible open carpal tunnel release and left cubital tunnel release. Reviewed procedure, post-op expectations and risks including but not limited to bleeding, infection, injury to tendon/nerve/vessel, decreased hand function, stiffness, RSD, no change or worsening of symptoms. I discussed the possible use of assistants and their participation in the case. Patient stated understanding and signed the consent form wishing to proceed. Review of Systems Review of Systems: All systems reviewed & are unremarkable except as noted in HPI and below PMFSH Past Medical History Medical History (Updated 11/20/22 @ 09:04 by Renita Mitchell MD) Anxiety and depression Encounter to establish care Numbness and tingling in both hands Weakness of both hands Family History Family History Father ALS (amyotrophic lateral sclerosis) Social History Social History (Updated 11/20/22 @ 08:37 by Kandi Clarke MA) Smoking status: Never smoker Alcohol intake: never Substance use: never Substance use type: does not use Lack of Transportation: No Lack of Food: Never True Current Housing: I Have Housing Concerned About Future Housing: No Difficulty Paying Gas/Electric Bills: No Difficulty Paying for Meds: No Currently Unemployed: No Education: Master's Degree or Higher Difficulty w/ Childcare or Family Care: No Living arrangements: with family Gender identity (if verbalized by the patient): Female Sexual Orientation (if Verbalized by the Patient): Straight or Heterosexual Spiritual care concerns: No Meds Home Medications and Allergies Home Medications Medication Instructions Recorded Confirmed Type medroxyprogesterone 150 mg/mL 150 mg IM [id number] 09/21/22 03/19/23 History intramuscular syringe (Depo-Provera) sertraline 100 mg tablet (Zoloft) 100 mg PO DAILY 09/21/22 03/29/23 History tramadol 50 mg tablet 50 mg PO Q6H PRN pain #12 tabs 03/29/23 Rx Allergies Allergy/AdvReac Type Severity Reaction Status Date / Time No Known Allergies Allergy Verified 03/29/23 08:27 Exam Narrative: unchanged Assessment and Plan Assessment and plan (1) Entrapment of left ulnar nerve at elbow: Code(s): G56.22 - Lesion of ulnar nerve, left upper limb Status: Acute Assessment and Plan: cont as above (2) Bilateral carpal tunnel syndrome: Code(s): G56.03 - Carpal tunnel syndrome, bilateral upper limbs Status: Acute (3) Ulnar neuropathy at elbow of right upper extremity: Code(s): G56.21 - Lesion of ulnar nerve, right upper limb Status: Acute
--- NOTE | 2023-03-29 06:52 | W.PM.PROC2 ---
Procedure Note - Detailed Date of Procedure 03/29/23 Pre-op Diagnosis left carpal and cubital tunnel syndrome Post-op Diagnosis Same Procedure Performed left ectr and cubital tunnel release Surgeon Renita Mitchell MD Anesthesia MAC Description of Procedure INFORMED CONSENT: The patient was seen and examined and marked in the pre-op area.? The patient signed the consent form. PROCEDURE IN DETAIL:The patient taken back to OR on the stretcher in supine position. Time out performed with anesthesia, surgeon and staff agreeing on patient's name site and surgery to be performed SCDs were placed on the lower extremities and inflated. A tourniquet was placed on {left} upper extremity and antibiotics given IV After anesthesia administered sedation I injected {10}cc 1%lido with epi and 0.5% marcaine plain at the operative sites The?{left upper extremity}?was prepped and draped in sterile fashion the??{left upper extremity} was? exsanguinated with Esmarch bandage and tourniquet inflated to 250mmHg I made a transverse incision in the {left} volar distal wrist crease through skin and dermis with 15 blade scalpel.? Littler scissors spread down to antebrachial fascia. A small incision was made in antebrachial fascia allowing access to Carpal tunnel. I proceeded with sequential dilation staying in line with the ring finger and hugging the hook of the hamate.? I then used the synovial elevator to free any adhesions from the underside of the transverse carpal ligament. Next I was able to insert the Microaire endoscopic carpal tunnel device with direct visualization of the transverse fibers on the monitor and proceeded with complete segmental retrograde release of the ligament in its entirety.? I irrigated with normal saline and closed with 4-0 monocryl for dermis and subcuticular closure. I next proceeded with making a longitudinal incision between two heads for flexor carpi ulnaris at end of {left} cubital tunnel with 15 blade scalpel.? Littler scissors were used to spread down to FCU fascia.? An incision was made in FCU fascia and ulnar nerve identified exiting cubital tunnel.? I proceeded with complete retrograde release of the cubital tunnel including 7cm proximal for the intermuscular septum.? The nerve appeared healthy with visible vaso nervorum.? There was no subluxation on full elbow range of motion. ? I irrigated with normal saline and closure with 4-0 monocryl for dermis and subcuticular. A dressing of Dermabond, 4x4, mehul, and a volar wrist and posterior elbow splint was applied for patient safety, security, and comfort and secured with an stuart bandage after the tourniquet was let down noting the hand was warm and well perfused. The patient was then awaken from anesthesia and transferred to the recovery room in stable condition.? Complications - none EBL- 1cc Disposition - home in stable conditions Blake Kapoor PA-C was essential for positioning, retraction, closure and dressing/splint placement [facility] Billing Surgery - Charge Forward: Surgery Billing ([id number] same for blake with mod )
[2023-03-29 08:00] VITALS: BP 127/85; PULSE 87; RESP 16; TEMP 36.7; O2SAT 99
[2023-03-29] MEDS: LACTATED RINGERS 1,000 ML 30 ML IV CONT (08:15)
--- NOTE | 2023-03-29 08:45 | WPDANESEPPF ---
Anes - Initial Pre Proc Eval Procedure: Operation Date: 03/29/23 09:30 Proposed Procedures p Left Endoscopic Carpal Tunnel Release, Possible Open - Renita Mitchell MD Date/Time: 03/29/23 08:45 Surgeon: Renita Mitchell MD Pre Op Diagnosis: left carpal tunnel syndrome Patient Data Age: 37 Gender: F Height: 1.6 m Weight: 93 kg Allergies Allergy/AdvReac Type Severity Reaction Status Date / Time No Known Allergies Allergy Verified 03/29/23 08:27 Home Medications Medication Instructions Recorded Confirmed Type medroxyprogesterone 150 mg/mL 150 mg IM [id number] 09/21/22 03/19/23 History intramuscular syringe (Depo-Provera) sertraline 100 mg tablet (Zoloft) 100 mg PO DAILY 09/21/22 03/29/23 History tramadol 50 mg tablet 50 mg PO Q6H PRN pain #12 tabs 03/29/23 Rx Patient hx anesthesia problems: none Family hx anesthesia problems: none Results Review: All pre-operative results and documents have been reviewed as part of the pre-operative evaluation. [facility] Past Medical History Medical History Anxiety and depression Encounter to establish care Numbness and tingling in both hands Weakness of both hands Family History Family History Father ALS (amyotrophic lateral sclerosis) Social History Social History Smoking status: Never smoker Alcohol intake: never Substance use: never Substance use type: does not use Lack of Transportation: No Lack of Food: Never True Current Housing: I Have Housing Concerned About Future Housing: No Difficulty Paying Gas/Electric Bills: No Difficulty Paying for Meds: No Currently Unemployed: No Education: Master's Degree or Higher Difficulty w/ Childcare or Family Care: No Living arrangements: with family Gender identity (if verbalized by the patient): Female Sexual Orientation (if Verbalized by the Patient): Straight or Heterosexual Spiritual care concerns: No Anes - Eval Final PreProcedure Day of Procedure 03/29/23 08:45 Patient weight: obese Heart: regular rate and rhythm Lungs: clear to auscultation Airway: Mallampati scale class II Neurological: alert and oriented Last oral intake: >/= 8 hours ASA classification: II Emergent: no Anesthetic plan: proceed Anesthesia type and monitoring: general GIVS and standard monitoring Results Review: All pre-operative results and documents have been reviewed as part of the pre-operative evaluation. Informed Consent: The patient's anesthetic plan and its attendant risks and benefits were discussed with the patient/family/POA. Questions were solicited and answers provided to the satisfaction of the patient/family/POA.
[2023-03-29] MEDS: ceFAZolin 2 GM/D5W 50 ML 2 GM/50 ML BAG IVPB (08:50)
[2023-03-29] MEDS: SCOPOLAMINE 1 MG PATCH 1 PATCH TRANSDERM (08:50)
[2023-03-29] MEDS: LIDO 1%/EPINEPHRINE 1:100,000 20 ML VIAL INFILTRATE (09:12)
[2023-03-29] MEDS: KETOROLAC 30 MG/ML VIAL (*BKC) IV PUSH (09:17)
[2023-03-29 09:30] VITALS: BP 103/70; PULSE 69; RESP 16; O2SAT 98
[2023-03-29 10:00] VITALS: BP 110/71; PULSE 64; RESP 16
[2023-03-29 10:26] VITALS: BP 107/69; PULSE 69; RESP 16
== END 2023-03-29 10:31 | disposition home or self-care (01) ==
PROVIDERS: PCP Nurse Practitioner Family; Visit Provider Plastic Surgery
PROC: 01N54ZZ Release Median Nerve, Percutaneous Endoscopic Approach (ICD-10-PCS; CPT 29848; principal; 2023-03-29 09:30)
DX: G56.02 Carpal tunnel syndrome, left upper limb (principal); F41.8 Other specified anxiety disorders; E66.9 Obesity, unspecified; Z68.36 Body mass index [BMI] 36.0-36.9, adult; Z79.891 Long term (current) use of opiate analgesic
CPT/HCPCS: 64718; 29848; A9270; J0690; J1100; J1885; J2250; J2405; J2704; J3010; J7120